=== PATIENT | female | born 1985 | race Hispanic/Latino ===

== ENCOUNTER 2016-10-30 08:45 | Emergency (ER) | payer OTHER ==
[~2016-10-30] VITALS: Ht 165.1 cm; Wt 70.3 kg
[~2016-10-30 08:45] MED LIST: AUGMENTIN 500-1 EACH PO; BENTYL20 MG PO; FIORICET 50-301 EACH PO; IBUPROFEN800 M1 PO; IMITREX50 M1 PO; MEDROL4 M2 PO; NAPROSYN500 M1 PO; REGLAN10 M1 PO; VALACYCLOVIR1000 MG PO; ZOFRAN 4 MG TABL4 MG PO; ZOFRAN ODT4 M1 SL; ZOFRAN4 M1 PO
--- NOTE | 2016-10-30 09:04 | ED HEADACHE COMPLAINT ---
History of Present Illness General Chief Complaint: Headache Stated Complaint: MIGRAINE X 3 DAYS Source: patient Exam Limitations: no limitations Vital Signs & Intake/Output Vital Signs & Intake/Output Vital Signs Date Time Temp Pulse Resp B/P B/P Pulse O2 O2 Flow FiO2 Mean Ox Delivery Rate 10/30 1039 96.5 65 18 96/54 99 Room Air 10/30 0848 97.0 66 18 108/72 100 Room Air Allergies Coded Allergies: No Known Allergies (12/04/15) Reconcile Medications Butalb/Acetaminophen/Caffeine (Fioricet 50-300-40 MG Capsule) 1 EACH CAPSULE 1 CAP PO Q6H PRN MIGRAINES (Reported) Butalb/Acetaminophen/Caffeine (Fioricet 50-300-40 MG Capsule) 50 MG-300 MG-40 MG CAPSULE 1 TAB PO Q6P PRN PAIN Ibuprofen 800 MG TABLET 1 TAB PO PRN PAIN (Reported) Methylprednisolone. (Medrol) 4 MG TAB.DS.PK 1 DP PO AD migraine Metoclopramide HCl (Reglan) 10 MG TABLET 1 TAB PO 4 TIMES/DAY PRN nausea/ headache 30 minutes before meals and bedtime Naproxen (Naprosyn) 500 MG TABLET 1 TAB PO BID PRN migraine Ondansetron (Zofran Odt) 4 MG TAB.RAPDIS 1 TAB SL TID PRN nausea Sumatriptan Succinate (Imitrex) 100 MG TABLET 1 TAB PO AD MIGRAINE with fluids as early as possible after the onset of a migraine attack;may repeat after 2 hours if headache returns, not to exce Sumatriptan Succinate (Imitrex) 50 MG TABLET 1 TAB PO AD migraine Valacyclovir HCl (Valacyclovir) 1,000 MG TABLET 1 TAB PO DAILY ANTIVIRAL ( Reported) Triage Note: PT TO ED C/O HEADACHE X 3 DAYS. NO NEURO DEFICITS NOTED. ALSO ASKING FOR A WORK NOTE FOR PAST THREE DAYS. Triage Nurses Notes Reviewed? yes : No Patient currently breastfeeds: No HPI: Barbara is a 31-year-old female who arrives through triage to room 3 for an evaluation of a migraine headache that she has had for past 3 days. She has nausea with no vomiting, photophobia and phonophobia. She reports she usually takes Fioricet home but she ran out because she has no insurance. Pain is moderate to severe at this time with a pressure all over her head tightness sensation. She denies any visual disturbances, dizziness. Light and sound make the pain worse and rest makes it better. (EVERETTE DIOR APRN) Past History Travel History Traveled to [place] past 21 day No Medical History Any Pertinent Medical History? 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 No (EVERETTE DIOR APRN) Review of Systems Review of Systems Constitutional: Reports: no symptoms. Eyes: Reports: no symptoms. Ears, Nose, Throat, Mouth: Reports: no symptoms. Respiratory: Reports: no symptoms. Cardiovascular: Reports: no symptoms. Gastrointestinal/Abdominal: Reports: nausea. Genitourinary: Reports: no symptoms. Musculoskeletal: Reports: no symptoms. Skin: Reports: no symptoms. Neurological/Psychological: Reports: headache, other (PHONOPHOBIA PHOTOPHOBIA). Hematologic/Endocrine: Reports: no symptoms. Endocrine: Reports: no symptoms. Immunologic/Allergic: Reports: no symptoms. All Other Systems: Reviewed and Negative (EVERETTE DIOR APRN) Physical Exam Physical Exam General Appearance: well developed/nourished, no apparent distress, mild distress Head: atraumatic, normal appearance Eyes: Bilateral: normal appearance, PERRL, EOMI. Ears, Nose, Throat: normal pharynx, normal ENT inspection, hearing grossly normal Neck: normal inspection, supple, full range of motion Respiratory: normal breath sounds, chest non-tender, no respiratory distress Cardiovascular: regular rate/rhythm Gastrointestinal: normal bowel sounds, soft, non-tender Back: normal inspection, normal range of motion Extremities: normal inspection, normal capillary refill, normal range of motion Psychiatric: awake, alert, oriented x 3 Cranial Nerves: normal hearing, normal speech, PERRL Coordination/Gait: normal finger to nose, normal gait Motor/Sensory: no motor/sensory deficits Skin: intact, normal color, warm/dry Core Measures Severe Sepsis Present: No Septic Shock Present: No (EVERETTE DIOR APRN) Progress Differential Diagnosis: migraine BAZZI, tension BAZZI Plan of Care: Current Medications Sig/Dave Start time Last Medication Dose Stop Time Status Admin Sodium Chloride 1,000 ML BOLUS ONE 10/30 0915 AC (Normal Saline 0.9%) 10/30 1014 Comments: 10:27 AM Barbara feels much better after IV fluids with medications. She would like to be discharged home and I will give her prescription for Fioricet and sumatriptan. She will follow up with Dr. Bruno (EVERETTE DIOR APRN) Departure Departure Time of Disposition: 1027 Disposition: HOME OR SELF CARE Condition: Stable Clinical Impression Primary Impression: Migraine Qualifiers: Migraine type: without aura Status migrainosus presence: without status migrainosus Intractability: not intractable Qualified Code: G43.009 - Migraine without aura, not intractable, without status migrainosus Referrals: RAÚL MICHEL,CAMERON Aponte (PCP/Family) Additional Instructions: Please take medications as directed and follow-up with Dr. Bruno this week. Please return for any worsening or concerning symptoms. Departure Forms: Customer Survey General Discharge Information Prescriptions: Current Visit Scripts Sumatriptan Succinate (Imitrex) 1 TAB PO AD #9 TAB with fluids as early as possible after the onset of a migraine attack;may repeat after 2 hours if headache returns, not to exce Butalb/Acetaminophen/Caffeine (Fioricet 50-300-40 MG Capsule) 1 TAB PO Q6P PRN PAIN #10 TAB (EVERETTE DIOR APRN) PA/BLADE CHANGER Co-Sign Statement Statement: ED Attending supervision documentation- [] I saw and evaluated the patient. I have also reviewed all the pertinent lab results and diagnostic results. I agree with the findings and the plan of care as documented in the PA's/BLADE CHANGER's documentation. [X] I have reviewed the ED Record and agree with the PA's/BLADE CHANGER's documentation. [] Additions or exceptions (if any) to the PAs/BLADE CHANGER's note and plan are summarized below: [] (ERIKA MICHEL,SCOT [place])
[2016-10-30] MEDS ORDERED: FIORICET 50-301 EACH PO (10:36)
[2016-10-30] MEDS ORDERED: IMITREX100 M1 PO (10:36)
[2016-10-30 10:39] VITALS: BP 96/54
== END 2016-10-30 10:44 ==
LOC: ERH 08:45
DX: G43.909 Migraine, unspecified, not intractable, without status migrainosus (principal)
CPT/HCPCS: 96374; 96375; J1200; J1885; J2765

== ENCOUNTER 2016-11-04 10:11 | Emergency (ER) | payer OTHER ==
[~2016-11-04] VITALS: Ht 162.6 cm; Wt 68.0 kg
[~2016-11-04 10:11] MED LIST changes: +IMITREX100 M1 PO
[2016-11-04 10:14] VITALS: BP 105/69
--- NOTE | 2016-11-04 10:58 | ED HEADACHE COMPLAINT ---
History of Present Illness General Chief Complaint: Headache Stated Complaint: MIGRANE Source: patient Exam Limitations: no limitations Vital Signs & Intake/Output Vital Signs & Intake/Output Vital Signs Date Time Temp Pulse Resp B/P B/P Pulse O2 O2 Flow FiO2 Mean Ox Delivery Rate 11/04 1014 97.7 84 15 105/69 97 Room Air Room Air Allergies Coded Allergies: No Known Allergies (11/04/16) Reconcile Medications Butalb/Acetaminophen/Caffeine (Fioricet 50-300-40 MG Capsule) 1 EACH CAPSULE 1 CAP PO Q6H PRN MIGRAINES (Reported) Butalb/Acetaminophen/Caffeine (Fioricet 50-300-40 MG Capsule) 50 MG-300 MG-40 MG CAPSULE 1 TAB PO Q6P PRN PAIN Ibuprofen 800 MG TABLET 1 TAB PO PRN PAIN (Reported) Ketorolac Tromethamine 10 MG TABLET 1 TAB PO TID PRN MIGRAINE RECEIVED IM IN ER Methylprednisolone. (Medrol) 4 MG TAB.DS.PK 1 DP PO AD migraine Metoclopramide HCl (Reglan) 10 MG TABLET 1 TAB PO 4 TIMES/DAY PRN nausea/ headache 30 minutes before meals and bedtime Naproxen (Naprosyn) 500 MG TABLET 1 TAB PO BID PRN migraine Ondansetron (Zofran Odt) 4 MG TAB.RAPDIS 1 TAB SL TID PRN nausea Ondansetron HCl (Zofran) 4 MG TABLET 1 TAB PO Q6-8P PRN NAUSEA Sumatriptan Succinate (Imitrex) 100 MG TABLET 1 TAB PO AD MIGRAINE with fluids as early as possible after the onset of a migraine attack;may repeat after 2 hours if headache returns, not to exce Sumatriptan Succinate (Imitrex) 50 MG TABLET 1 TAB PO AD migraine Valacyclovir HCl (Valacyclovir) 1,000 MG TABLET 1 TAB PO DAILY ANTIVIRAL ( Reported) Triage Note: PT TO ED FOR C/C OF WORSENING HEADACHE SINCE TUESDAY. SEEN HERE TUESDAY FOR SAME BUT NOW HEADACHE IS WORSE AND ALL OVER HER HEAD. +N/ VOMITTED X 1 YESTERDAY, BLURRY VISION. PT REPORTS SHE DOES NOT HAVE INSURANCE SO SHE HASN'T BEEN ABLE TO TAKE ANY MEDICATIONS TO HELP WITH THE HEADACHE. Triage Nurses Notes Reviewed? yes Onset: Gradual Duration: intermittent Quality/Severity: pressure, throbbing Severity Numbers: 7 Head Injury Location: global : No Patient currently breastfeeds: No HPI: Patient is a 31-year-old female with past medical history of migraines who states that she was evaluated 3 days ago at the emergency room for concerns of similar migraine patient had complete resolution of symptoms prior to being discharge patient was given medications prescriptions for her symptoms however she states that she has no insurance and was unable to pick these medications up for her symptoms. Patient has been taking any medications prior to arrival for her symptoms were she has been complaining of waxing and waning pressure-like headache symptoms patient has nausea however is able tolerate by mouth today. Denies any neck pain neck stiffness denies any acute onset or thunderclap headache. Positive for photophobia and sensitivity to loud noises. Past History Travel History Traveled to [place] past 21 day No Medical History Any Pertinent Medical History? 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 No Review of Systems Review of Systems Constitutional: Reports: no symptoms. Eyes: Reports: see HPI, photophobia. Ears, Nose, Throat, Mouth: Reports: no symptoms. Respiratory: Reports: no symptoms. Cardiovascular: Reports: no symptoms. Gastrointestinal/Abdominal: Reports: see HPI, nausea. Genitourinary: Reports: no symptoms. Musculoskeletal: Reports: no symptoms. Skin: Reports: no symptoms. Neurological/Psychological: Reports: see HPI, headache. Hematologic/Endocrine: Reports: no symptoms. Endocrine: Reports: no symptoms. Immunologic/Allergic: Reports: no symptoms. All Other Systems: Reviewed and Negative Physical Exam Physical Exam General Appearance: no apparent distress, alert, comfortable Cranial Nerves: normal hearing, normal speech, PERRL Comments: Well-developed well-nourished person in no acute distress HEENT: Normal EENT exam, extraocular motion intact, no nystagmus. Pupils equally round and reactive to light and accommodation. Nose is atraumatic. External auditory canal and Tympanic membranes clear. Pharynx normal. No swelling or edema. Neck: Supple, no lymphadenopathy, normal range of motion without pain or tenderness Back: Nontender, no CVA tenderness. Cardiovascular: Regular rate and rhythms no murmurs rubs or gallops, normal JVP Respiratory: Chest nontender. No respiratory distress.breath sounds clear to auscultation bilaterally Abdomen: Soft, nontender nondistended, no appreciable organomegaly. Normal bowel sounds. No ascites Extremity: No edema, no calf tenderness to palpation, normal and equal pulses. Neuro: Alert oriented x3, motor sensory normal, cranial nerves II through XII grossly intact. Skin: No appreciable rash on exposed skin, skin is warm and dry. Psych: Mood and affect is normal, memory and judgment is normal. Core Measures Severe Sepsis Present: No Septic Shock Present: No Progress Differential Diagnosis: carotid dissection, cav sinus thromb, cluster BAZZI, encephalitis, IC mass/tumor, intracranial Hem., meningitis, migraine BAZZI, musculoskeletal pain, post LP headache, sinusitis, SSS thrombosis, subarach. Hem., tension BAZZI, temporal arteritis, TMJ syndrome, viral cephalgia Plan of Care: Patient on initial examination had unremarkable physical exam findings no concerns at this time of subarachnoid hemorrhage patient denies any thunderclap headache concerns. 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 Patient is able tolerate by mouth Departure Departure Disposition: HOME OR SELF CARE Condition: Stable Clinical Impression Primary Impression: Migraine Referrals: RAÚL MICHEL,CAMERON Aponte (PCP/Family) Additional Instructions: As discussed begin the prescription of ketorolac for future headaches and begin the prescription of Zofran for nausea. Prescriptions waiting a [facility]. Please seed cone picker the previously prescribed medications of Fioricet for breakthrough headache. If symptoms worsen return to emergency room. Prescription is waiting a [facility]. Departure Forms: Customer Survey General Discharge Information Prescriptions: Current Visit Scripts Ketorolac Tromethamine 1 TAB PO TID PRN MIGRAINE #15 TAB RECEIVED IM IN ER Ondansetron HCl (Zofran) 1 TAB PO Q6-8P PRN NAUSEA #15 TAB
[2016-11-04] MEDS ORDERED: ZOFRAN4 M2 PO (11:14)
[2016-11-04] MEDS ORDERED: KETOROLAC TROME10 M1 PO (11:14)
== END 2016-11-04 11:35 ==
LOC: ERH 10:11
DX: G43.909 Migraine, unspecified, not intractable, without status migrainosus (principal)
CPT/HCPCS: 96372; J1885; J3101

== ENCOUNTER 2017-09-03 09:03 | Emergency (ER) | payer OTHER ==
[~2017-09-03] VITALS: Ht 162.6 cm; Wt 59.0 kg
[~2017-09-03 09:03] MED LIST changes: +AMOXICILLIN250 M3 PO; +KETOROLAC TROME10 M1 PO; +PERCOCET 5-3251 EACH PO; +ZOFRAN4 M2 PO
--- NOTE | 2017-09-03 09:22 | ED HEADACHE COMPLAINT ---
History of Present Illness General Chief Complaint: Headache Stated Complaint: MIGRANE Vital Signs & Intake/Output Vital Signs & Intake/Output Vital Signs Date Time Temp Pulse Resp B/P B/P Pulse O2 O2 Flow FiO2 Mean Ox Delivery Rate 09/03 0909 97.4 69 18 105/72 98 Room Air Allergies Coded Allergies: No Known Allergies (11/04/16) Reconcile Medications Amoxicillin 250 MG CAPSULE 1 CAP PO TID dental infection Methylprednisolone. (Medrol) 4 MG TAB.DS.PK 1 DP PO AD migraine Metoclopramide HCl (Reglan) 10 MG TABLET 1 TAB PO 4 TIMES/DAY PRN nausea/ headache 30 minutes before meals and bedtime Naproxen (Naprosyn) 500 MG TABLET 1 TAB PO BID PRN migraine Ondansetron (Zofran Odt) 4 MG TAB.RAPDIS 1 TAB SL TID PRN nausea Ondansetron HCl (Zofran) 4 MG TABLET 1 TAB PO Q6-8P PRN NAUSEA Oxycodone HCl/Acetaminophen (Percocet 5-325 MG Tablet) 5 MG-325 MG TABLET 1-2 TAB PO Q6P PRN PAIN Sumatriptan Succinate (Imitrex) 100 MG TABLET 1 TAB PO AD MIGRAINE with fluids as early as possible after the onset of a migraine attack;may repeat after 2 hours if headache returns, not to exce Sumatriptan Succinate (Imitrex) 50 MG TABLET 1 TAB PO AD migraine Valacyclovir HCl (Valacyclovir) 1,000 MG TABLET 1 TAB PO DAILY ANTIVIRAL ( Reported) Triage Note: C/O MIGRAINE HEADACHE SINCE THIS AM, WITH VOMITING X 1 (WITH BLOOD). STATES PAIN IS ON R SIDE OF HEAD WITH EYES SENSITIVE TO LIGHT. 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
--- NOTE | 2017-09-03 09:58 | ED HEADACHE COMPLAINT ---
History of Present Illness General Chief Complaint: Headache Stated Complaint: MIGRANE Source: patient, old records Exam Limitations: no limitations Vital Signs & Intake/Output Vital Signs & Intake/Output Vital Signs Date Time Temp Pulse Resp B/P B/P Pulse O2 O2 Flow FiO2 Mean Ox Delivery Rate 09/03 1204 98.0 84 18 112/68 98 Room Air 09/03 0909 97.4 69 18 105/72 98 Room Air Allergies Coded Allergies: No Known Allergies (11/04/16) Reconcile Medications Amoxicillin 250 MG CAPSULE 1 CAP PO TID dental infection Methylprednisolone. (Medrol) 4 MG TAB.DS.PK 1 DP PO AD migraine Metoclopramide HCl (Reglan) 10 MG TABLET 1 TAB PO 4 TIMES/DAY PRN nausea/ headache 30 minutes before meals and bedtime Metoclopramide HCl (Reglan) 10 MG TABLET 1 TAB PO 4 TIMES/DAY PRN nausea/ migraine Naproxen (Anaprox Ds) 550 MG TABLET 1 TAB PO BID PRN pain Naproxen (Naprosyn) 500 MG TABLET 1 TAB PO BID PRN migraine Ondansetron (Zofran Odt) 4 MG TAB.RAPDIS 1 TAB SL TID PRN nausea Ondansetron (Zofran Odt) 4 MG TAB.RAPDIS 1 TAB SL TID PRN nausea Ondansetron HCl (Zofran) 4 MG TABLET 1 TAB PO Q6-8P PRN NAUSEA Oxycodone HCl/Acetaminophen (Percocet 5-325 MG Tablet) 5 MG-325 MG TABLET 1-2 TAB PO Q6P PRN PAIN Sumatriptan Succinate (Imitrex) 100 MG TABLET 1 TAB PO AD MIGRAINE with fluids as early as possible after the onset of a migraine attack;may repeat after 2 hours if headache returns, not to exce Sumatriptan Succinate (Imitrex) 50 MG TABLET 1 TAB PO AD migraine Sumatriptan Succinate (Imitrex) 100 MG TABLET 1 TAB PO AD PRN headache as early as possible after the onset of a migraine may repeat after 1 hours if headache continues Valacyclovir HCl (Valacyclovir) 1,000 MG TABLET 1 TAB PO DAILY ANTIVIRAL ( Reported) Triage Note: C/O MIGRAINE HEADACHE SINCE THIS AM, WITH VOMITING X 1 (WITH BLOOD). STATES PAIN IS ON R SIDE OF HEAD WITH EYES SENSITIVE TO LIGHT. Triage Nurses Notes Reviewed? yes Onset: Morning Duration: hour(s):, constant, continues in ED Timing: single episode today Quality/Severity: severe, throbbing Head Injury Location: temporal, parietal Modifying Factors: Worsens With: other (light and sound). LMP (ages 10-50): unknown : No Patient currently breastfeeds: No HPI: Upon arising patient complains of right temporal parietal migraine headache described as severe throbbing worse with bright light and sound associated with nausea vomiting. She denies fever chills abdominal pain chest pain cough shortness of breath dysuria rash bleeding. Past History Travel History Traveled to [place] past 21 day No Medical History Any Pertinent Medical History? 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 No Review of Systems Review of Systems Constitutional: Reports: no symptoms. Eyes: Reports: see HPI, photophobia. Ears, Nose, Throat, Mouth: Reports: no symptoms. Respiratory: Reports: no symptoms. Cardiovascular: Reports: no symptoms. Gastrointestinal/Abdominal: Reports: see HPI, nausea, vomiting. Genitourinary: Reports: no symptoms. Musculoskeletal: Reports: no symptoms. Skin: Reports: no symptoms. Neurological/Psychological: Reports: no symptoms. Hematologic/Endocrine: Reports: no symptoms. Endocrine: Reports: no symptoms. Immunologic/Allergic: Reports: no symptoms. All Other Systems: Reviewed and Negative Physical Exam Physical Exam General Appearance: well developed/nourished, alert, awake, anxious, severe distress, thin Head: atraumatic, normal appearance Eyes: Bilateral: normal appearance, PERRL, EOMI. Ears, Nose, Throat: normal pharynx, normal ENT inspection, hearing grossly normal Neck: normal inspection, supple, full range of motion, trachea midline Respiratory: normal breath sounds, chest non-tender, no respiratory distress, quiet respiration, lungs clear Cardiovascular: regular rate/rhythm, normal peripheral pulses, norml femoral pulses equa Gastrointestinal: normal bowel sounds, soft, non-tender, no organomegaly Back: normal inspection, normal range of motion, no vertebral tenderness Extremities: normal inspection, normal capillary refill, normal range of motion, no edema Psychiatric: awake, alert, oriented x 3 Cranial Nerves: normal hearing, normal speech, PERRL Coordination/Gait: normal finger to nose, normal gait Motor/Sensory: no motor/sensory deficits Reflexes: 2+: bicep (R), bicep (L). Skin: intact, normal color, warm/dry Lymphatic: no anterior cervical karina Core Measures Sepsis Present: No Sepsis Focused Exam Completed? No Progress Differential Diagnosis: cluster BAZZI, migraine BAZZI Plan of Care: Current Medications Sig/Dave Start time Last Medication Dose Stop Time Status Admin Sodium Chloride 1,000 ML BOLUS ONE 09/03 1245 AC (Normal Saline 0.9%) 09/03 1344 imitrex, zofran Departure Departure Time of Disposition: 1403 Disposition: HOME OR SELF CARE Condition: Stable Clinical Impression Primary Impression: Migraine headache Referrals: Kiana MICHEL,Candace Aponte (PCP/Family) Departure Forms: Customer Survey General Discharge Information Prescriptions: Current Visit Scripts Metoclopramide HCl (Reglan) 1 TAB PO 4 TIMES/DAY PRN nausea/migraine #30 TAB Naproxen (Anaprox Ds) 1 TAB PO BID PRN pain #60 TAB Ref 2 Ondansetron (Zofran Odt) 1 TAB SL TID PRN nausea #10 TAB Sumatriptan Succinate (Imitrex) 1 TAB PO AD PRN headache #9 TAB as early as possible after the onset of a migraine may repeat after 1 hours if headache continues
[2017-09-03] MEDS ORDERED: REGLAN10 M1 PO (12:47)
[2017-09-03] MEDS ORDERED: IMITREX100 M1 PO (12:47)
[2017-09-03] MEDS ORDERED: ZOFRAN ODT4 M1 SL (12:47)
[2017-09-03] MEDS ORDERED: ANAPROX DS550 MG PO (12:47)
[2017-09-03 14:05] VITALS: BP 114/85
== END 2017-09-03 14:05 ==
LOC: ERH 09:03
DX: G43.909 Migraine, unspecified, not intractable, without status migrainosus (principal)
CPT/HCPCS: 96361; 96372; 96374; 96375; J0131; J1885; J2405; J2765; J3030; J3101

== ENCOUNTER 2018-01-22 21:20 | Emergency (ER) | payer OTHER ==
[~2018-01-22] VITALS: Ht 162.6 cm; Wt 57.2 kg
[~2018-01-22 21:20] MED LIST changes: +ANAPROX DS550 MG PO
--- NOTE | 2018-01-22 22:59 | RADIOLOGY REPORT ---
EXAMINATION: XR HAND, RIGHT CLINICAL INFORMATION: Right thumb pain after crush injury COMPARISON: 04/21/2011 TECHNIQUE: PA, lateral, and oblique views of the right hand. FINDINGS: The bones and soft tissues are normal. No fracture. Alignment is anatomic. Joint spaces are maintained. No erosions or soft tissue calcifications. IMPRESSION: Normal right hand.
--- NOTE | 2018-01-23 00:39 | ED HAND/WRIST INJURY COMPLAINT ---
History of Present Illness General Chief Complaint: General Adult Stated Complaint: RT THUMB COUGHT IN FREEZER DOOR" Source: patient Exam Limitations: no limitations Vital Signs & Intake/Output Vital Signs & Intake/Output Vital Signs Date Time Temp Pulse Resp B/P B/P Pulse O2 O2 Flow FiO2 Mean Ox Delivery Rate 01/23 0030 98 Room Air 01/227 99.0 80 18 125/75 99 Room Air ED Intake and Output 01/23 0000 01/22 1200 Intake Total Output Total Balance Patient 126 lb Weight Weight Reported by Patient Measurement Method Allergies Coded Allergies: No Known Allergies (11/04/16) Reconcile Medications Amoxicillin 250 MG CAPSULE 1 CAP PO TID dental infection Methylprednisolone. (Medrol) 4 MG TAB.DS.PK 1 DP PO AD migraine Metoclopramide HCl (Reglan) 10 MG TABLET 1 TAB PO 4 TIMES/DAY PRN nausea/ headache 30 minutes before meals and bedtime Metoclopramide HCl (Reglan) 10 MG TABLET 1 TAB PO 4 TIMES/DAY PRN nausea/ migraine Naproxen (Anaprox Ds) 550 MG TABLET 1 TAB PO BID PRN pain Naproxen (Naprosyn) 500 MG TABLET 1 TAB PO BID PRN migraine Ondansetron (Zofran Odt) 4 MG TAB.RAPDIS 1 TAB SL TID PRN nausea Ondansetron (Zofran Odt) 4 MG TAB.RAPDIS 1 TAB SL TID PRN nausea Ondansetron HCl (Zofran) 4 MG TABLET 1 TAB PO Q6-8P PRN NAUSEA Oxycodone HCl/Acetaminophen (Percocet 5-325 MG Tablet) 5 MG-325 MG TABLET 1-2 TAB PO Q6P PRN PAIN Sumatriptan Succinate (Imitrex) 100 MG TABLET 1 TAB PO AD MIGRAINE with fluids as early as possible after the onset of a migraine attack;may repeat after 2 hours if headache returns, not to exce Sumatriptan Succinate (Imitrex) 50 MG TABLET 1 TAB PO AD migraine Sumatriptan Succinate (Imitrex) 100 MG TABLET 1 TAB PO AD PRN headache as early as possible after the onset of a migraine may repeat after 1 hours if headache continues Valacyclovir HCl (Valacyclovir) 1,000 MG TABLET 1 TAB PO DAILY ANTIVIRAL ( Reported) Triage Note: PT TO ED C/O RT HAND PAIN UP TO RT ELBOW. STATES BENT THUMB BACK WHILE CLOSING FREEZER DOOR 2 WEEKS AGO "I TRIED TO TOUGH IT OUT BUT NOW THE PAIN GOES UP TO MY ELBOW" Triage Nurses Notes Reviewed? yes Occurred: last week Duration: week(s): (1.5), constant, continues in ED, getting worse Timing: single episode today Injury Environment: home Severity: moderate, severe Severity Numbers: 7 Pain/Injury Location: Right: Arm, 1st finger. Context: crush Method of Injury: direct blow : No Patient currently breastfeeds: No HPI: 32-year-old female presents for evaluation of right thumb pain. Patient reports about a week and a half ago the right thumb was closed in a freezer door. She reports that she has had pain ever since. The pain is getting worse and is now radiating into her forearm and elbow. Pain is worse with movement. She denies numbness or tingling. No additional injuries she is not taking any medicine. (Shiv Lagos) Past History Travel History Traveled to [place] past 21 day No Medical History Any Pertinent Medical History? 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 No (Shiv Lagos) Review of Systems Review of Systems Constitutional: Reports: no symptoms. EENTM: Reports: no symptoms. Respiratory: Reports: no symptoms. Cardiovascular: Reports: no symptoms. GI: Reports: no symptoms. Genitourinary: Reports: no symptoms. Musculoskeletal: Reports: joint pain, joint swelling, muscle pain, muscle stiffness. Skin: Reports: no symptoms. Neurological/Psychological: Reports: no symptoms. Hematologic/Endocrine: Reports: no symptoms. Immunologic/Allergic: Reports: no symptoms. All Other Systems: Reviewed and Negative (Shiv Lagos) Physical Exam Physical Exam General Appearance: well developed/nourished, no apparent distress, alert, awake Head: atraumatic, normal appearance Eyes: Bilateral: normal appearance, EOMI. Ears, Nose, Throat: hearing grossly normal Neck: normal inspection, supple, full range of motion Cardiovascular/Respiratory: no respiratory distress Shoulder Left: normal range of motion, normal inspection Shoulder Right: normal range of motion, normal inspection Elbow Left: normal range of motion, normal inspection Elbow Right: normal range of motion, normal inspection Forearm Left: normal range of motion, normal inspection Forearm Right: normal range of motion, normal inspection Wrist Left: normal range of motion, normal inspection Wrist Right: normal range of motion, normal inspection, see rt hand exam Hand Left: normal inspection, normal range of motion Hand Right: normal inspection, normal range of motion, tender, 1st finger, there is diffuse tenderness at the base of thye rt thum. thereis snuff box pain to palpation. no brusing swelling or abrasion. full rom intact. cap refill less that 2 sec. sensory supply intact. full rom of rt wrist Neurologic/Tendon: normal sensation, normal motor functions, normal tendon functions, responds to pain, no evidence tendon injury, no pulse deficit Skin: intact, normal color, warm/dry (Amanuel DESOUZA,Shiv) Progress Differential Diagnosis: contusion, dislocation, fracture, sprain Plan of Care: Orders Procedure Date/time Status Durable Medical Equipment 01/23 0039 Active URINE 01/22 2122 Complete Laboratory Tests 01/22/182219: Urine Test NEGATIVE Patient is here for evaluation of right thumb pain. Week and a half ago she closed the right thumb in a refrigerator. She has had pain since the pain radiates into the forearm and elbow. On exam she has diffuse tenderness at the base of the thumb and has snuffbox tenderness. Full range motion is intact neurovascular supplies intact x-rays here are negative for fracture. Patient was placed into a thumb spica splint and advised to repeat x-rays in 2 weeks. Tylenol or ibuprofen for pain. Follow-up with the primary care doctor. Discussed return precautions patient agrees the plan Diagnostic Imaging: Viewed by Me: Radiology Read. Discussed w/RAD: Radiology Read. Radiology Impression: PATIENT: RUDDY BHARDWAJ PRESENT AGE: 32 PATIENT ACCOUNT NO: [id number] : 84 LOCATION: [facility] ORDERING PHYSICIAN: Shiv DESOUZA SERVICE DATE: 01/22/18-2121 EXAM TYPE: RAD - XRY-HAND, RIGHT EXAMINATION: XR HAND, RIGHT CLINICAL INFORMATION: Right thumb pain after crush injury COMPARISON: 04/21/2011 TECHNIQUE: PA, lateral, and oblique views of the right hand. FINDINGS: The bones and soft tissues are normal. No fracture. Alignment is anatomic. Joint spaces are maintained. No erosions or soft tissue calcifications. IMPRESSION: Normal right hand. DICTATED BY: Adry Wilson MD DATE /TIME DICTATED:01/22/182253 FORESTRY CONSERVATION WORKER:MARIBELL DATE/TIME TRANSCRIBED: 01/22/182253 CONFIDENTIAL, DO NOT COPY WITHOUT APPROPRIATE AUTHORIZATION. < Electronically signed in Other Vendor System> SIGNED BY: Adry Wilson MD [id number] (Shiv Lagos) Departure Departure Disposition: HOME OR SELF CARE Condition: Stable Clinical Impression Primary Impression: Thumb pain Qualifiers: Laterality: unspecified laterality Qualified Code: M79.646 - Pain in unspecified finger(s) Referrals: Kiana MICHEL,Candace Aponte (PCP/Family) Additional Instructions: Rest, apply ice 15-20 minutes every few hours. Wear thumb spica splint. Repeat x-rays in 2 weeks. Tylenol ibuprofen for pain. Make a follow-up with your doctor in a few days to recheck. Monitor symptoms return with any concerns. Please note that there might be incidental findings in your evaluation that are unrelated to the current emergency department visit. Please notify your primary care doctor about this emergency department visit in order to obtain and review all of the testing performed so that these incidental findings can be monitored as needed. If you had an x-ray performed, please understand that some fractures or other findings may not be seen on the initial set of x-rays. If your symptoms persist you might need a repeat set of x-rays to check for such a fracture. If you had a laceration evaluated, please understand that foreign bodies such as glass or wood may not be visible to the naked eye or on plain x-rays. If the wound becomes red, swollen, increasingly more painful or if there is any drainage from the wound, please have it reevaluated by a physician for the possibility of a retained foreign body. If you're unable to follow up as outlined in the discharge instructions please return to the emergency department. Thank you for choosing the [facility] Emergency Department for your care. It was a pleasure to serve you today. Departure Forms: Customer Survey General Discharge Information (Shiv Lagos) PA/DRAWBENCH OPERATOR HELPER Co-Sign Statement Statement: ED Attending supervision documentation- [] I saw and evaluated the patient. I have also reviewed all the pertinent lab results and diagnostic results. I agree with the findings and the plan of care as documented in the PA's/DRAWBENCH OPERATOR HELPER's documentation. [X] I have reviewed the ED Record and agree with the PA's/DRAWBENCH OPERATOR HELPER's documentation. [] Additions or exceptions (if any) to the PAs/DRAWBENCH OPERATOR HELPER's note and plan are summarized below: [] (Candido Waters DO
[2018-01-23 00:49] VITALS: BP 124/65
== END 2018-01-23 00:52 ==
LOC: ERH 21:20
DX: M79.644 Pain in right finger(s) (principal); M79.631 Pain in right forearm; M25.521 Pain in right elbow; G43.909 Migraine, unspecified, not intractable, without status migrainosus
CPT/HCPCS: 73130-RT; 81025